=== PATIENT | female | born 1995 | race African-American/Black ===

== ENCOUNTER 2017-05-13 14:48 | Emergency (ER) | payer SELFPAY, OTHER ==
[2017-05-13 15:55] LABS: #Basophils 0.1 thou/uL (0.0-0.2); #Eosinphils 0.1 thou/uL (0.0-0.7); #Lymphocytes 1.3 thou/uL (1.20-3.40); #Monocytes 0.9 thou/uL (0.11-0.59); #Neutrophils 8.4 thou/uL (1.40-6.50); %Basophils 1.1 % (0.0-1.0); %Eosinophils 0.5 % (0.0-10.0); %Lymphocytes 11.6 % (28.0-48.0); %Monocytes 8.5 % (0.0-4.0); Hematocrit 45.8 % (36.0-47.0); Mean Platelet Volume 7.7 fL (7.4-10.4); Red Blood Cell (RBC) Count 5.07 mill/uL (4.00-5.20); White Blood Cell (WBC) Count 10.7 thou/uL (4.8-10.8)
[2017-05-13 16:13] LABS: ALT (SGPT) 28 U/L (8-55); AST (SGOT) 26 U/L (5-30); Alkaline Phosphatase 72 U/L (40-150); Anion Gap 14 mmol/L (10-20); BUN (Urea Nitrogen) 7 mg/dL (8.4-21.0); Bilirubin, Total 0.6 mg/dL (0.2-1.2); Calc. Creatinine Clearance 0 mL/min (70-130); Calcium 9.9 mg/dL (7.8-10.44); Carbon Dioxide 24 mmol/L (22-29); Chloride 106 mmol/L (98-107); Estimated GFR-MDRD Greater than 90; Globulin 3.6 g/dL (2.4-3.5); Protein, Total 8.1 g/dL (6.0-8.3)
== END 2017-05-13 16:35 | disposition home or self-care (01) ==
LOC: SCSER 14:48
DX: K64.4 Residual hemorrhoidal skin tags (principal)
CPT/HCPCS: 36415; 80053; 82274; 84703; 85025; 99284

== ENCOUNTER 2018-03-10 22:59 | Emergency (ER) | payer MEDICAID, SELFPAY ==
[~2018-03-10 22:59] MED LIST: ISOVUE-370 76%-LOCM 1 ML ONE
[2018-03-10 23:20] LABS: #Basophils 0.1 thou/uL (0.0-0.2); #Monocytes 0.9 thou/uL (0.11-0.59); #Neutrophils 9.9 thou/uL (1.40-6.50); %Basophils 0.8 % (0.0-1.0); %Eosinophils 0.3 % (0.0-10.0); %Lymphocytes 15.3 % (28.0-48.0); %Monocytes 7.2 % (0.0-4.0); %Neutrophils 76.4 % (31.0-61.0); Hemoglobin 13.9 g/dL (12.0-16.0); Mean Corpuscular HGB CONC 33.1 g/dL (32.0-36.0); Mean Corpuscular Hemoglobin 30.4 pg (25.0-35.0); Mean Corpuscular Volume 91.9 fL (78.0-98.0); Mean Platelet Volume 8.6 fL (7.4-10.4); Platelet Count 204 thou/uL (130-400); RBC Distribution Width 11.2 % (11.5-14.5); Red Blood Cell (RBC) Count 4.57 mill/uL (4.00-5.20)
[2018-03-10 23:40] LABS: Acetaminophen Less than 6.0 mcg/mL (10.0-30.0); Alcohol 156 mg/dL (Less than 10); Salicylate Less than 8.0 mg/dL (15.0-30.0)
[2018-03-10 23:41] LABS: ALT (SGPT) 53 U/L (8-55); AST (SGOT) 96 U/L (5-34); Albumin 4.1 g/dL (3.5-5.0); Alkaline Phosphatase 57 U/L (40-150); Anion Gap 16 mmol/L (10-20); BUN (Urea Nitrogen) 10 mg/dL (7.0-18.7); Bilirubin, Total 0.2 mg/dL (0.2-1.2); Calc. Creatinine Clearance 0 mL/min (70-130); Calcium 8.8 mg/dL (7.8-10.44); Carbon Dioxide 13 mmol/L (22-29); Chloride 118 mmol/L (98-107); Estimated GFR-MDRD 76; Globulin 2.9 g/dL (2.4-3.5); Glucose 92 mg/dL (70-105); Sodium 143 mmol/L (136-145)
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
== END 2018-03-11 03:20 | disposition home or self-care (01) ==
LOC: ERS 22:59
DX: S93.439A Sprain of tibiofibular ligament of unspecified ankle, initial encounter (principal); S69.92XA Unspecified injury of left wrist, hand and finger(s), initial encounter; Z79.899 Other long term (current) drug therapy; V89.2XXA Person injured in unspecified motor-vehicle accident, traffic, initial encounter
CPT/HCPCS: 29125; 70450; 71045; 72125; 72170; 74177; 80053; 80307; 83735; 85025; 96360; 96361; G0390